=== PATIENT | female | born 1995 | race Caucasian/White ===

== ENCOUNTER 2018-10-12 23:13 | Emergency (ER) | payer OTHER ==
[~2018-10-12] VITALS: Ht 167.6 cm; Wt 56.6 kg
[~2018-10-12 23:13] MED LIST: CLOT30CR24 TOP
[2018-10-12 23:21] VITALS: Ht 167.6 cm; Wt 56.6 kg
[2018-10-13] MEDS ORDERED: KETOROLAC 60 MG INJ IM STA (00:04)
--- NOTE | 2018-10-13 00:25 | ERD ---
ER Documentation Chief Complaint Chief Complaint pt reports VB x 3 weeks, dizziness, SOB x 1 day HPI 23-year-old female presents with complaint of vaginal spotting as well as clear mucousy discharge for the past 3 weeks. In addition she has been having pelvic pain. States she has a history of cysts on her ovaries. States that she has had chlamydia in the past. States that she is sexually active with one partner. Denies any dysuria, hematuria, flank pain, fevers, chills, vomiting. Last menstrual period September 15. Denies allergies. ROS All systems reviewed and are negative except as per history of present illness. Medications Home Meds Active Scripts Doxycycline Hyclate* (Doxycycline Hyclate*) 100 Mg Tablet.dr, 100 MG PO BID for infection for 14 Days, TAB Prov:SANYA DOWNS 10/13/18 Ondansetron (Ondansetron Odt) 4 Mg Tab.rapdis, 4 MG PO Q6H PRN for NAUSEA AND/OR VOMITING, #10 TAB Prov:SANYA DOWNS 10/13/18 Hydrocodone/Acetaminophen (Dearing 5-325 Tablet) 1 Each Tablet, 1 TAB PO Q6H PRN for PAIN, #10 TAB Prov:SANYA DOWNS 10/13/18 Ibuprofen* (Motrin*) 600 Mg Tab, 600 MG PO Q6 for pain, #30 TAB Prov:SANYA DOWNS 10/13/18 Clotrimazole* (Clotrimazole* AF) 1% - 30 Gm Cream.gm., 1 APPLIC TOP BID for 7 Days, TUB Prov:RICARDO BEARD PA-C 07/21/18 Allergies Allergies: Coded Allergies: amoxicillin (Verified Allergy, Unknown, 07/21/18) clavulanic acid (Verified Allergy, Unknown, 07/21/18) divalproex sodium (Verified Allergy, Unknown, 07/21/18) PMhx/Soc History of Surgery: Yes (tonsillectomy, appendectomy, splenectomy ) Anesthesia Reaction: No Hx Neurological Disorder: Yes (meningitis) Hx Respiratory Disorders: No Hx Cardiac Disorders: No Hx Psychiatric Problems: No Hx Miscellaneous Medical Probl: Yes (fibroids ) Hx Alcohol Use: Yes Hx Substance Use: No Hx Tobacco Use: No Smoking Status: Never smoker FmHx Family History: No diabetes, No coronary disease, No other Physical Exam Vitals Vital Signs Date Temp Pulse Resp B/P (MAP) Pulse Ox O2 O2 Flow FiO2 Time Delivery Rate 10/12/18 98.7 100 24 127/76 97 23:21 (93) Physical Exam Const: No acute distress Head: Atraumatic Eyes: Normal Conjunctiva ENT: Normal External Ears, Nose and Mouth. Neck: Full range of motion. No meningismus. Resp: Clear to auscultation bilaterally Cardio: Regular rate and rhythm, no murmurs Abd: Soft, non tender, non distended. Normal bowel sounds Skin: No petechiae or rashes. Back: No midline or flank tenderness Ext: No cyanosis, or edema Neur: Awake and alert Psych: Normal Mood and Affect Pelvic: Performed with digester operator helper present. No lesions to the vaginal mucosa. There was some mucousy clear discharge noted at the os with mild blood. There was no pooling of blood. Result Diagram: 10/13/18 0014 10/13/18 0014 Results 24 hrs Laboratory Tests Test 10/13/18 00:14 White Blood Count 13.4 10^3/ul Red Blood Count 4.55 10^6/ul Hemoglobin 11.9 g/dl Hematocrit 36.7 % Mean Corpuscular Volume 80.7 fl Mean Corpuscular Hemoglobin 26.2 pg Mean Corpuscular Hemoglobin Concent 32.4 g/dl Red Cell Distribution Width 14.1 % Platelet Count 281 10^3/UL Mean Platelet Volume 10.5 fl Immature Granulocytes % 0.300 % Neutrophils % 57.4 % Lymphocytes % 30.1 % Monocytes % 11.0 % Eosinophils % 1.0 % Basophils % 0.2 % Nucleated Red Blood Cells % 0.0 /100WBC Immature Granulocytes # 0.040 10^3/ul Neutrophils # 7.7 10^3/ul Lymphocytes # 4.0 10^3/ul Monocytes # 1.5 10^3/ul Eosinophils # 0.1 10^3/ul Basophils # 0.0 10^3/ul Nucleated Red Blood Cells # 0.0 10^3/ul Urine Color YELLOW Urine Clarity SLIGHTLY CLOUDY Urine pH 5.0 Urine Specific Levan 1.028 Urine Ketones 1+ mg/dL Urine Nitrite NEGATIVE mg/dL Urine Bilirubin NEGATIVE mg/dL Urine Urobilinogen NEGATIVE mg/dL Urine Leukocyte Esterase NEGATIVE Benedict/ul Urine Microscopic RBC 17 /HPF Urine Microscopic WBC 7 /HPF Urine Squamous Epithelial Cells FEW /HPF Urine Mucus FEW /HPF Urine Hemoglobin 3+ mg/dL Urine Glucose NEGATIVE mg/dL Urine Total Protein NEGATIVE mg/dl Sodium Level 140 mmol/L Potassium Level 3.8 mmol/L Chloride Level 106 mmol/L Carbon Dioxide Level 24 mmol/L Anion Gap 10 Blood Urea Nitrogen 14 mg/dl Creatinine 0.67 mg/dl Est Glomerular Filtrat Rate mL/min > 60 mL/min Glucose Level 95 mg/dl Calcium Level 9.8 mg/dl Total Bilirubin 0.5 mg/dl Direct Bilirubin 0.00 mg/dl Indirect Bilirubin 0.5 mg/dl Aspartate Amino Transf (AST/SGOT) 18 IU/L Alanine Aminotransferase (ALT/SGPT) 12 IU/L Alkaline Phosphatase 62 IU/L Total Protein 7.7 g/dl Albumin 4.5 g/dl Globulin 3.20 g/dl Albumin/Globulin Ratio 1.40 POC Beta HCG, Qualitative NEGATIVE Current Medications Medications Dose Sig/Lena Start Time Status Last (Trade) Ordered Route PRN Stop Time Admin Dose Reason Admin Ketorolac 60 mg ONCE STAT 10/13/18 DC 10/13/18 Tromethamine IM 00:04 10/13/18 00:23 (Toradol) 00:07 1,000 mg ONCE ONCE 10/13/18 DC 10/13/18 Azithromycin PO 04:00 10/13/18 04:17 (Zithromax) 04:08 Ceftriaxone 250 mg ONCE ONCE 10/13/18 DC 10/13/18 Sodium IM 04:00 10/13/18 04:18 (Rocephin) 04:08 Lidocaine 5 ml ONCE ONCE 10/13/18 DC 10/13/18 (Xylocaine INJ 04:00 10/13/18 04:18 1% (Mpf)) 04:08 Ondansetron 4 mg ONCE STAT 10/13/18 DC 10/13/18 HCl (Zofran ODT 03:58 10/13/18 04:17 Odt) 04:08 Procedures/MDM DIAGNOSTIC IMAGING REPORT Patient: SUGEY KELLER : 1995 Age: 23 Sex: F MR #: [id number] DOS: 10/13/18 0001 Ordering MD: SANYA DOWNS Location: [facility] Room/Bed: PROCEDURE: US Pelvis with transvaginal. CLINICAL INDICATION: Pelvic pain, vaginal bleeding times 3 weeks. Last menstrual period 09/15/2018 TECHNIQUE: Multiple sonographic images of the pelvis were obtained utilizing a transabdominal and endovaginal technique. The images were reviewed on a PACS workstation. COMPARISON: None. FINDINGS: The uterus measures 7.7 x 4 x 5.3 cm and is unremarkable. The thickness of the endometrium equals 8.2 mm. The right ovary is not seen. The left ovary measures 3.6 x 1.9 x 2.6 cm and is unremarkable. Color flow and spectral analysis demonstrates arterial flow in the left ovary. No adnexal mass or free intrapelvic fluid is seen. IMPRESSION: Right ovary not seen. Otherwise unremarkable examination as noted above. Please see above. RPTAT: HJES .Klaus Van MD, MD Date Time Electronically viewed and signed by .Klaus Van MD, MD on 10/13/2018 02:01 .S/ CC: SANYA DOWNS [phone] MDM: Fungal wet mount results were negative. Ultrasound results within normal limits. Given patient's complaint of vaginal discharge as well as pelvic pain patient will be treated for possible STD with azithromycin and ceftriaxone in the ER, discharged with doxycycline for possible PID. Low suspicion for ectopic , ovarian torsion, cholecystitis, appendicitis, or any other emergent condition. Patient discharged with strict ER precautions. Patient advised to follow up with PMD. All questions answered at discharge. Departure Diagnosis: Primary Impression: Pelvic pain Additional Impression: Vaginal discharge Condition: Stable SANYA DOWNS October 13, 2018 00:25
[2018-10-13] MEDS ORDERED: ONDANSETRON (ODT) 4 MG TAB ODT STA (03:58)
[2018-10-13] MEDS ORDERED: LIDOCAINE 1% (MPF) 5 ML VIAL INJ ONE (04:00)
[2018-10-13] MEDS ORDERED: CEFTRIAXONE 250 MG INJ IM ONE (04:00)
[2018-10-13] MEDS ORDERED: AZITHROMYCIN 500 MG TAB PO ONE (04:00)
[2018-10-13] MEDS ORDERED: HYDR-4011 PO (04:09)
[2018-10-13] MEDS ORDERED: ONDA4TAB14 PO (04:09)
[2018-10-13] MEDS ORDERED: IBUP-1542 PO (04:09)
[2018-10-13] MEDS ORDERED: DOXY100T20 PO (04:13)
[2018-10-13 04:30] VITALS: BP 103/61; PULSE 67; RESP 19
== END 2018-10-13 04:30 | disposition home or self-care (01) ==
LOC: FTE 23:13
DX: N89.8 Other specified noninflammatory disorders of vagina (principal); R10.2 Pelvic and perineal pain
CPT/HCPCS: 36415; 76830; 76856; 80053; 81001; 81025; 85025; 87210; 87591; 96372; J0696; J1885; Z7502; Z7610